=== PATIENT | female | born 1970 | race Caucasian/White ===

== ENCOUNTER 2020-02-23 08:12 | Emergency (ER) | payer BC, MEDICARE ==
[~2020-02-23] VITALS: Ht 162.6 cm; Wt 99.8 kg
[2020-02-23 08:12] VITALS: BP_SYST 143
[~2020-02-23 08:12] MED LIST: CETI10CA PO
--- NOTE | 2020-02-23 08:12 | NUR ---
BROUGHT BACK TO BED #8 AND TRIAGED. REPORT GIVEN TO PATTIE
--- NOTE | 2020-02-23 08:20 | NUR ---
Pt came to ER with pain while urination states the pain is a burning sensation 10/10. Resting in gurney, no distress noted, VSS.
--- NOTE | 2020-02-23 08:30 | NUR ---
ER at bedside examining patient.
[2020-02-23 09:02] VITALS: BP_SYST 137
--- NOTE | 2020-02-23 09:02 | NUR ---
Patient given written and verbal discharge instructions and verbalizes understanding. ER MD discussed with patient the results and treatment provided. Patient in stable condition. ID arm band removed. Rx of NITROFURANTION given. Patient educated on pain management and to follow up with PMD. Pain Scale 0/10. Opportunity for questions provided and answered. Medication side effect fact sheet provided.
== END 2020-02-23 09:02 | disposition home or self-care (01) ==
LOC: SED 08:12
DX: N30.00 Acute cystitis without hematuria (principal)
CPT/HCPCS: 81002; 99283